=== PATIENT | female | born 1975 | race Caucasian/White ===

== ENCOUNTER 2018-04-09 06:04 | Day surgery (SDC) | payer OTHER ==
[~2018-04-09] VITALS: Ht 152.4 cm; Wt 84.4 kg
[~2018-04-09 06:04] MED LIST: PROBIOTIC1 EAC1 PO; SIMV40 PO
--- NOTE | 2018-04-09 09:47 | NUR ---
04/09/18 0947 David Juarez CAT# [id number], LOT #[id number], EXP 03/16/2022
--- NOTE | 2018-04-09 18:42 | NUR ---
SUMMARY OOB TO CHAIR, BALDEMAR WELL, REPORTS PAIN IS TOLERABLE AT THIS TIME, DENIES ANY NAUSEA, SMALL AMOUNT OF SANGUINOUS DRAINAGE IN PERIPAD NOTED, VSS, NO ACUTE CHANGES THIS SHIFT.
[2018-04-10 05:47] LABS: BASOPHILS ABSOLUTE AUTO 0.01 K/mm3 (0.00-0.23); BASOPHILS PERCENT AUTO 0 % (0-2); EOSINOPHILS ABSOLUTE AUTO 0.01 K/mm3 (0.00-0.68); EOSINOPHILS PERCENT AUTO 0 % (0-6); Hematocrit 34.2 % (33.0-51.0); Hemoglobin 10.8 g/dL (11.5-16.0); IMMATURE GRAN ABSOLUTE AUTO 0.06 K/mm3 (0.00-0.10); IMMATURE GRAN PERCENT AUTO 0 % (0-1); LYMPHOCYTES ABSOLUTE AUTO 1.83 K/mm3 (0.84-5.20); LYMPHOCYTES PERCENT AUTO 14 % (21-46); MONOCYTES ABSOLUTE AUTO 1.35 K/mm3 (0.16-1.47); MONOCYTES PERCENT AUTO 10 % (4-13); Mean Corpuscular HGB 28.8 pg (26.0-34.0); Mean Corpuscular HGB Conc 31.6 g/dL (31.5-36.5); Mean Corpuscular Volume 91 fL (80-100); Mean Platelet Volume 10.4 fL (9.1-12.4); NEUTROPHILS ABSOLUTE AUTO 10.22 K/mm3 (1.96-9.15); NEUTROPHILS PERCENT AUTO 76 % (41-73); Platelet Count 252 K/mm3 (150-400); RDW Coefficient Variation 14.2 % (11.7-14.2); RDW Standard Deviation 47.4 fL (35.1-46.3); Red Blood Cell Count 3.75 M/mm3 (3.80-5.20); White Blood Cell Count 13.48 K/mm3 (4.00-11.30)
--- NOTE | 2018-04-10 05:59 | NUR ---
SUMMARY PT SLEPT QUIETLY.REPORTS ADEQUATE PAIN CONTROL WITH 1/2 TAB PAIN PILL PER HER REQUEST.PT USING I.S. Q1-2 HR W/A ENC. PAS ON AND ACTIVE. CADET PATENT OF CLR YELLOW.LIGHT VAG BLEED. CHANGED PAD WITH CATH CARE THIS AM. PT TAKING PO FLUIDS WITHOUT NAUSEA.PT VERB PLANS FOR DISCHARGE HOME TODAY.
--- NOTE | 2018-04-10 06:34 | NUR ---
SUMMARY PT TAKING PO WITHOUT NAUSEA. CADET DCD PER ORDERS. PO PAIN MED EFFECTIVE. PT AMBULATES IN ROOM TO CHAIR AND REPOSITIONS SELF INDEPENDANTLY. LIGHT VAG FLOW.
[2018-04-10] MEDS ORDERED: ACET325 PO (11:03)
[2018-04-10] MEDS ORDERED: DOCU100 PO (11:03)
[2018-04-10] MEDS ORDERED: OXYC5 PO (11:04)
[2018-04-10] MEDS ORDERED: IBUP800 PO (11:04)
--- NOTE | 2018-04-10 18:59 | NUR ---
DR. Chau PEREZ UPDATED REGARDING PT'S CONDITION THIS AFTERNOON, PT'S LAST PVR WAS 91, PT DC'D HOME ORDERED, DC INSTRUCTIONS GIVEN, VERBALIZED UNDERSTANDING, IV DC'D CATH INTACT, DENIES ANY ABD PAIN.
== END 2018-04-10 19:03 | disposition home or self-care (01) ==
LOC: ORSCMMR 06:04 → ORD 07:30 → SURS 10:44 → ORSCMMR 04-10 19:03
PROVIDERS: Obstetrics & Gynecology
PROC: 0UT7FZZ Resection of Bilateral Fallopian Tubes, Via Natural or Artificial Opening With Percutaneous Endoscopic Assistance (ICD-10-PCS; principal; 2018-04-09 07:30)
PROC: 0UT9FZZ Resection of Uterus, Via Natural or Artificial Opening With Percutaneous Endoscopic Assistance (ICD-10-PCS; principal; 2018-04-09 07:30)
DX: N80.0 Endometriosis of uterus (principal); N94.6 Dysmenorrhea, unspecified; N81.11 Cystocele, midline; N92.1 Excessive and frequent menstruation with irregular cycle; D25.9 Leiomyoma of uterus, unspecified; N72 Inflammatory disease of cervix uteri
CPT/HCPCS: 36415; 85025; 88307; C1729; C1771; J0690; J1100; J1885; J2250; J2370; J2405; J2710; J3010; J7030; J7120

== ENCOUNTER → 2021-03-18 | Outpatient (CLI) | payer OTHER ==
[~2021-03-18] MED LIST changes: +ACET325 PO; +DOCU100 PO; +IBUP800 PO; +OXYC5 PO
[2021-03-18 15:41] LABS: BASOPHILS ABSOLUTE AUTO 0.04 K/mm3 (0.00-0.23); BASOPHILS PERCENT AUTO 1 % (0-2); EOSINOPHILS ABSOLUTE AUTO 0.19 K/mm3 (0.00-0.68); EOSINOPHILS PERCENT AUTO 3 % (0-6); Hematocrit 40.4 % (33.0-51.0); Hemoglobin 13.5 g/dL (11.5-16.0); IMMATURE GRAN ABSOLUTE AUTO 0.01 K/mm3 (0.00-0.10); IMMATURE GRAN PERCENT AUTO 0 % (0-1); LYMPHOCYTES PERCENT AUTO 30 % (21-46); MONOCYTES ABSOLUTE AUTO 0.63 K/mm3 (0.16-1.47); MONOCYTES PERCENT AUTO 9 % (4-13); Mean Corpuscular HGB 29.7 pg (26.0-34.0); Mean Corpuscular HGB Conc 33.4 g/dL (31.5-36.5); Mean Corpuscular Volume 89 fL (80-100); Mean Platelet Volume 10.2 fL (9.1-12.4); NEUTROPHILS ABSOLUTE AUTO 3.85 K/mm3 (1.96-9.15); NEUTROPHILS PERCENT AUTO 57 % (41-73); Platelet Count 291 K/mm3 (150-400); RDW Coefficient Variation 13.4 % (11.7-14.2); Red Blood Cell Count 4.54 M/mm3 (3.80-5.20); White Blood Cell Count 6.72 K/mm3 (4.00-11.30)
[2021-03-18 16:00] LABS: Alanine Aminotransfer (ALT/SGP 38 U/L (12-78); Albumin, Blood 3.9 g/dL (3.4-5.0); Albumin/Globulin Ratio 1.2 (0.8-1.8); Alk Phos 73 U/L (40-126); Anion Gap 11 mmol/L (6-16); Aspartate Aminotrans (AST/SGOT 17 U/L (12-37); Bilirubin, Total 0.6 mg/dL (0.1-1.0); Blood Urea Nitrogen 16 mg/dL (8-24); Bun/Creatinine Ratio 21.1 (12.0-20.0); CO2, Blood 26 mmol/L (21-32); Calcium, Blood 8.6 mg/dL (8.5-10.1); Chloride, Blood 107 mmol/L (98-108); Creatinine, Blood 0.76 mg/dL (0.40-1.00); Globulin, Blood 3.2 g/dL (2.2-4.0); Glomerular Filtration Rate >60 (60-); Glucose, Blood 102 mg/dL (70-99); Potassium, Blood 3.8 mmol/L (3.5-5.5); Sodium, Blood 144 mmol/L (136-145); Total Protein, Blood 7.1 g/dL (6.4-8.2)
[2021-03-18 16:02] LABS: Troponin I <0.017 ng/mL (0.000-0.040)
== END | disposition home or self-care (01) ==
LOC: LAB 15:37 → LAB SHORT 15:37
PROVIDERS: Physician Assistant
DX: E55.9 Vitamin D deficiency, unspecified (principal); R07.89 Other chest pain
CPT/HCPCS: 80053; 82306; 84484; 85025